=== PATIENT | female | born 1955 ===

== ENCOUNTER 2018-01-30 21:01 | Emergency (ER) | payer OTHER ==
[2018-01-30 21:22] VITALS: BMI 26.4
[2018-01-30 21:23] VITALS: RESP 18; TEMP 98.2
[2018-01-30] MEDS ORDERED: Naproxen 550 mg Tab PO STA (21:50)
--- NOTE | 2018-01-30 22:01 | ED PDOC ---
Arrival/HPI - General Historian: Patient - History of Present Illness Narrative History of Present Illness (Text): 01/30/18 22:00 62 yo F s/p slip and fall at work today at 8 pm, landing on her R shoulder and arm, here c/o R shoulder, R elbow and R rib pain. Otherwise reports no head injury, LOC, neck pain, back pain, other extremity pain/injury, numbness or decrease in ROM. PMD Michael <Adrienne Pro PA-C - Last Filed: 01/30/18 23:44> <Jordan Soto - Last Filed: 01/31/18 06:12> - General Chief Complaint: Upper Extremity Problem/Injury Time Seen by Provider: 01/30/18 21:09 Past Medical History - Infectious Disease Hx of Infectious Diseases: None - Musculoskeletal/Rheumatological Hx Arthritis: Yes - Gastrointestinal Hx Colitis: Yes - Psychiatric Hx Substance Use: No <Adrienne Pro PA-C - Last Filed: 01/30/18 23:44> Family/Social History Family/Social History: No Known Family HX Smoking Status: Never Smoked Hx Alcohol Use: No Hx Substance Use: No <Adrienne Pro PA-C - Last Filed: 01/30/18 23:44> Allergies/Home Meds <Adrienne Pro PA-C - Last Filed: 01/30/18 23:44> <Jordan Soto - Last Filed: 01/31/18 06:12> Allergies/Adverse Reactions: Allergies No Known Allergies Allergy (Verified 01/30/18 21:26) Review of Systems - Review of Systems Constitutional: absent: Fatigue, Fevers Cardiovascular: Chest Pain (+R rib pain). absent: Palpitations Gastrointestinal: absent: Abdominal Pain, Nausea, Vomiting Genitourinary Female: absent: Dysuria, Frequency, Hematuria Musculoskeletal: Arthralgias (+R shoulder, R elbow pain). absent: Back Pain, Neck Pain Skin: absent: Rash, Pruritis, Skin Lesions Neurological: absent: Headache, Dizziness <Adrienne Pro PA-C - Last Filed: 01/30/18 23:44> Physical Exam Vital Signs Temp Pulse Resp BP Pulse Ox 01/30/18 21:22 98.2 F 64 18 136/81 97 Temperature: Afebrile Blood Pressure: Normal Pulse: Regular Respiratory Rate: Normal Appearance: Positive for: Well-Appearing, Non-Toxic, Comfortable Pain Distress: Mild Mental Status: Positive for: Alert and Oriented X 3 - Systems Exam Head: Present: Atraumatic, Normocephalic Pupils: Present: PERRL Extroacular Muscles: Present: EOMI Conjunctiva: Present: Normal Mouth: Present: Moist Mucous Membranes Neck: Present: Normal Range of Motion. No: MIDLINE TENDERNESS, Paraspinal Tenderness Respiratory/Chest: Present: Clear to Auscultation, Good Air Exchange, Tender to Palpation (+mild tenderness to palpation to the R lateral ribs, without ecchymosis, edema or deformity). No: Respiratory Distress, Accessory Muscle Use Cardiovascular: Present: Regular Rate and Rhythm, Normal S1, S2. No: Murmurs Abdomen: No: Tenderness, Distention, Peritoneal Signs Back: Present: Normal Inspection. No: Midline Tenderness, Paraspinal Tenderness Upper Extremity: Present: Normal Inspection, Normal ROM, NORMAL PULSES, Tenderness (+mild tenderness to the R shoulder and R elbow, with FROM.), Neurovascularly Intact, Capillary Refill < 2s, Norm 2-Pt Discrimination. No: Cyanosis, Edema, Swelling, Erythema, Temperature Abnormalties, Deformity Lower Extremity: Present: Normal Inspection. No: Edema Neurological: Present: GCS=15, CN II-XII Intact, Speech Normal, Motor Func Grossly Intact, Normal Sensory Function Skin: Present: Warm, Dry, Normal Color. No: Rashes Psychiatric: Present: Alert, Oriented x 3, Normal Insight, Normal Concentration <Adrienne Pro PA-C - Last Filed: 01/30/18 23:44> Vital Signs Temp Pulse Resp BP Pulse Ox 01/30/18 22:39 66 18 136/72 99 01/30/18 21:22 98.2 F 64 18 136/81 97 <Jordan Soto - Last Filed: 01/31/18 06:12> Medical Decision Making ED Course and Treatment: 01/30/18 21:58 Plan : - XR R shoulder - XR R elbow - XR R ribs - Naprosyn PO XR R shoulder : no fracture, no dislocation, as read by PO. XR R elbow : no fracture, no dislocation, as read by PO. XR R ribs : no fracture, no pneumothorax, as read by PO. On re-evaluation, patient reports that the pain is improving. X-ray results discussed with the patient in great detail. Shoulder sling applied. Diagnosis of contusion d/w the patient. Advice to rest and ice. Based on history, exam and diagnostic results, plan will be for outpatient follow up. Patient instructed to follow-up with pmd in 1-2 days without fail. Advised to take medication as prescribed. Return to the emergency room at any time for any new or worsening symptoms. Patient states she fully agrees with and understands discharge instructions. States that she agrees with the plan and disposition. Verbalized and repeated discharge instructions and plan. I have given the patient opportunity to ask any additional questions. - RAD Interpretation Radiology Orders: 01/30/18 21:27 SHOULDER RIGHT [RAD] Stat 01/30/18 21:50 ELBOW RIGHT 3 VIEWS ROUTINE [RAD] Stat RIBS RIGHT & PA CHEST [RAD] Stat - Medication Orders Current Medication Orders: Discontinued Medications Naproxen (Anaprox Ds) 550 mg PO ONCE STA Stop: 01/30/18 21:51 <Adrienne Pro PA-C - Last Filed: 01/30/18 23:44> - RAD Interpretation Radiology Orders: 01/30/18 21:27 SHOULDER RIGHT [RAD] Stat 01/30/18 21:50 ELBOW RIGHT 3 VIEWS ROUTINE [RAD] Stat RIBS RIGHT & PA CHEST [RAD] Stat - Medication Orders Current Medication Orders: Discontinued Medications Naproxen (Anaprox Ds) 550 mg PO ONCE STA Stop: 01/30/18 21:51 Last Admin: 01/30/18 22:21 Dose: 550 mg <Jordan Soto - Last Filed: 01/31/18 06:12> - PA / CHILD WELFARE COUNSELOR / Resident Statement RICHARD has reviewed & agrees with the documentation as recorded. <Adrienne Pro PA-C - Last Filed: 01/30/18 23:44> - PA / CHILD WELFARE COUNSELOR / Resident Statement RICHARD has reviewed & agrees with the documentation as recorded. <Jordan Soto - Last Filed: 01/31/18 06:12> Disposition/Present on Arrival - Present on Arrival Any Indicators Present on Arrival: No History of DVT/PE: No History of Uncontrolled Diabetes: No Urinary Catheter: No History of Decub. Ulcer: No History Surgical Site Infection Following: None - Disposition Have Diagnosis and Disposition been Completed?: Yes Disposition Time: 22:30 Patient Plan: Discharge <Adrienne Pro PA-C - Last Filed: 01/30/18 23:44> <BrittanyJordan - Last Filed: 01/31/18 06:12> - Disposition Diagnosis: Contusion of shoulder, right, Contusion of rib on right side Disposition: HOME/ ROUTINE Condition: STABLE Discharge Instructions (ExitCare): Contusion (DC), Bruised Rib (DC), Shoulder Pain (DC) Print Language: FIJIAN Additional Instructions: Thank you for letting us take care of you today. You were treated for R sh oulder/arm contusion, R rib contusion. The emergency medical care you received today was directed at your acute symptoms. If you were prescribed any medication, please fill it and take as directed. It may take several days for your symptoms to resolve. Return to the Emergency Department if your symptoms worsen, do not improve, or if you have any other problems. Please contact your doctor in 2 days for re-evaluation and follow up. Bring any paperwork you were given at discharge with you along with any medications you are taking to your follow up visit. Our treatment cannot replace ongoing medical care by a primary care provider (PCP) outside of the emergency department. Thank you for allowing the [facility] team to be part of your care today. If you had an X-Ray : A Radiologist will review the ED reading if any change in treatment is needed we will contact you. Prescriptions: RX: Naproxen 500 mg PO BID #30 tab Referrals: Dannie Rodriguez MD [Primary Care Provider] - Follow up with primary Forms: [employer] ([employer]), WORK NOTE
[2018-01-30 22:39] VITALS: BP 136/72; PULSE 66; O2SAT 99
--- NOTE | 2018-01-31 09:47 | RAD ---
PROCEDURE: Radiographs of the Right Shoulder HISTORY: pain COMPARISON: No prior. FINDINGS: BONES: No acute displaced fracture. The distal clavicle and underlying ribs appear intact. JOINTS: No acute dislocation. SOFT TISSUES: Soft tissues appear unremarkable. No evidence of radiopaque foreign body. IMPRESSION: No acute displaced fracture or dislocation evident. If symptoms persist or if there is continued clinical concern, x-ray follow-up in 7-10 days should be considered.
--- NOTE | 2018-01-31 09:51 | RAD ---
Date of service: 01/30/2018 PROCEDURE: Radiographs of the Chest and Right Ribs. HISTORY: pain COMPARISON: None available. TECHNIQUE: Frontal radiograph of the chest and multiple oblique radiographs of the right ribs were obtained. FINDINGS: RIGHT RIBS: No acute displaced fracture identified. LUNGS: No focal consolidation identified. Please note that chest x-ray has limited sensitivity for the detection of pulmonary masses. PLEURA: No significant pleural effusion. No definite pneumothorax. CARDIOVASCULAR: Mild cardiomegaly. Ectatic aorta. Atherosclerotic calcification present. OTHER FINDINGS: None. IMPRESSION: Mild cardiomegaly. No appreciable displaced CT right rib fracture.
--- NOTE | 2018-01-31 09:53 | RAD ---
PROCEDURE: Radiographs of the right elbow. HISTORY: pain COMPARISON: No prior. FINDINGS: Suboptimal lateral view. BONES: No acute displaced fracture. JOINTS: No dislocation. SOFT TISSUES: No evidence of retained radiopaque foreign body. JOINT EFFUSION: Limited visualization due to rotated lateral view. No significant joint effusion. OTHER FINDINGS: None IMPRESSION: Limited study. No acute displaced fracture or dislocation identified. Cross-sectional imaging may be considered if indicated.
== END 2018-01-30 22:42 | disposition home or self-care (01) ==
LOC: ED 21:01
DX: S40.011A Contusion of right shoulder, initial encounter (principal); S20.211A Contusion of right front wall of thorax, initial encounter; W01.0XXA Fall on same level from slipping, tripping and stumbling without subsequent striking against object, initial encounter; Y99.0 Civilian activity done for income or pay